=== PATIENT | female | born 1965 | race Caucasian/White ===

== ENCOUNTER 2021-03-26 13:56 | Outpatient (REF) | payer MEDICAID, SELFPAY ==
--- NOTE | 2021-03-26 16:10 | MHC.AU.ANR ---
Adult Audiological Evaluation Date of Visit: 03/26/21 Reason for Appointment: Audiological evaluation due to concern for decreased hearing. Ms. Hernandez feels her hearing has been gradually decreasing for many years. She notes that she has to ask for repetition and feels people are mumbling. She reports a history of ear infections when she was a child/teenager. She also reports that she perforated her eardrums while scuba diving when she was younger. Ms. 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 Does patient feel they have a hearing loss?: Yes If Yes, Which Ear?: Both Ears Has hearing been tested previously?: No Hearing Handicap Inventory: HHIE SCORE: 20 Based on HHIE score, patient has: Mild to moderate perceived hearing handicap Ear History: Ear Infections in Childhood: Both Ears Medical History: Medical History: Cancer, Tobacco Use Medical History (Other): Melanoma treated surgically in 2019, uterine fibroid 2008, Lasik eye surgery 2008, macular hole surgery 2020 Allergies: Bacitracin, chamomilla, ylang-ylang oil Medication List: Vitamin D-3 1,000 iu, multivitamin, Vitamin B-12 sublingual, Zyrtec PRN, Valacyclovir HCl 500 mg daily, IC ketorolac 0.5% ophthalmic solution 3x daily, Hydrocortisone ointment 2.5% PRN, Protonic oral .03% 2x daily PRN Otoscopy: Right Ear: Clear canal, scarring on tympanic membrane Left Ear: Clear canal, scarring on tympanic membrane Tympanometry: Tympanometry performed due to: Prior history of tympanic membrane perforation Right Ear: Normal Middle Ear System (Type A) Left Ear: Normal Middle Ear System (Type A) Hearing Evaluation: Transducer(s) Used: Insert Earphones, Bone Conduction Method: Conventional Audiometry Stimuli Used: Pure Tones Right Ear: Description of Hearing: Normal hearing from 250-8000 Hz. Left Ear: Description of Hearing: Normal hearing from 250-3000 Hz, sloping to a mild sensorineural hearing loss from 8365-8782 Hz. Speech Recognition Threshold (SRT): Method Used: Monitored Live Voice Stimuli Used: Spondee Words Right Ear: 10 dBHL Left Ear: 10 dBHL Word Discrimination: Method: Recorded Lists Word Lists Used: NU-6 Right Ear: 100% at 50 dBHL Left Ear: 100% at 50 dBHL QuickSIN: -2 dB SNR loss when presented binaurally at 50 dBHL, indicating normal [id number] understanding abilities. Recommendations: Audiological re-evaluation in one year to monitor hearing due to slight asymmetry. Amplification is not warranted at this time. Diagnosis: Primary Diagnosis: H90.42 SNHL Unilateral Left Side, W/Unrestricted Contralateral Hearing Services Performed: Services Performed: Comprehensive Audiological Evaluation (CPT 48229) Tympanometry (CPT 01416) Unlisted Otorhinolaryngological Service or Procedure (CPT 36211) Signature: Provider: Christina Culver, CCC-A
== END 2021-03-26 13:57 | disposition home or self-care (01) ==
LOC: HO.SH 13:56
PROVIDERS: Visit Provider Student in an Organized Health Care Education/Training Program
DX: H90.42 Sensorineural hearing loss, unilateral, left ear, with unrestricted hearing on the contralateral side (principal)
CPT/HCPCS: 92557; 92567; 92700